=== PATIENT | male | born 1985 | race Hispanic/Latino ===

== ENCOUNTER 2024-10-08 01:50 | Emergency (ER) | payer MEDICAID, OTHER ==
[~2024-10-08] VITALS: Ht 167.6 cm; Wt 68.0 kg
[2024-10-08 01:53] VITALS: TEMP 98.8
[2024-10-08] MEDS: ibuPROFEN 800 MG TAB PO ONE (02:17)
[2024-10-08] MEDS: HYDROcodone/APAP 5/325 1 TAB TABLET PO ONE (02:18)
--- NOTE | 2024-10-08 02:21 | ERN ---
General Chief Complaint: Hand Problem/Injury Stated Complaint: C/O PAIN WITH SWELLING TO RIGHT HAND Time Seen by MD: 01:55 History of Present Illness Initial Comments Otherwise healthy 39-year-old male presents for right head injury. Reports pain to the 4th & 5th metacarpal status post punching a wall. No other injuries. Neurovascularly intact. Allergies: Coded Allergies: No Known Allergies (Unverified Allergy, Unknown, 10/08/24) Past Medical History Past Medical History: Seizure, Other Medical History Other: HX OF EPILEPSY Past Surgical History: None ROS Dictation CONSTITUTIONAL: No chills, no fever, no weakness, no diaphoresis, no malaise. HEAD/FACE: No signs of trauma. EENT: No eye pain, no blurred vision, no tearing, no double vision, no ear pain, no ear discharge, no nose pain, no nasal congestion, no throat pain, no throat swelling, no mouth pain. RESPIRATORY: No cough, no orthopnea, no SOB, no stridor, no wheezing. CARDIOVASCULAR: No chest pain, no edema, no palpitations, no syncope. GASTROINTESTINAL/ABDOMINAL: No abdominal pain, no constipation, no diarrhea, no nausea, no vomiting. GENITOURINARY: No abnormal discharge, no dysuria, no frequent urination, no hematuria. No complaints of pain in the genitals. MUSCULOSKELETAL: Right hand pain INTEGUMENTARY: No change in color, no change in hair/nails, no dryness, no lesion, no lumps, no rash. NEUROLOGICAL/PSYCH: No anxiety, not depressed, no emotional problem, no headache, no numbness, no pre-existing deficit, no history of seizures, no tremors, no weakness. HEMATOLOGIC/LYMPHATIC: Not anemic, no history of blood clots, no apparent bleeding, no bruising, glands not swollen. All Systems Negative, Except as Noted. Physical Exam Physical Exam Dictation VITAL SIGNS: Reviewed. GENERAL APPEARANCE: Alert, oriented x3, no acute distress HEAD AND FACE: Non-traumatic. EYES: PERRL, pink conjunctivas, eyelid no trauma, anterior chamber clear. EARS: Pinnas intact and no signs of trauma or erythema. Ear canals clear and no discharge. TMs no erythema. NOSE: No discharge, no bleeding. OROPHARYNX: Mouth normal, teeth no caries, tongue pink. Pharynx clear, no erythema. Tonsils no exudates, no abscesses noted. Mucous membrane moist. NECK: Supple, non-tender, no thyromegaly, no masses, no JVD, no bruits. BREAST: Deferred. CHEST: No tenderness, no crepitus, no paradoxical movement, no retractions. LUNGS: Clear, well-ventilated, symmetric, no rales, no wheezing, no rhonchi, no stridor, good breath sounds bilaterally. HEART: Regular rate, regular rhythm, no murmur, no gallops. VASCULAR: No peripheral edema. ABDOMEN: Soft, positive bowel sounds, nondistended, no guarding, nontender, no rebound, no masses no hepatomegaly, no splenomegaly, no Kaplan's sign, no hernias. RECTAL: Deferred. GENITAL: Deferred. NEUROLOGICAL: Normal speech, gross motor function intact, gross sensory function intact. MUSCULOSKELETAL: Neck nontender, full range of motion, back nontender, full range of motion. Right hand deformity to the dorsum at the base of the 4th and 5th digits. EXTREMITIES: Nontender, full range of motion. SKIN: Color pink, dry, no turgor, no rash, no lacerations, no abrasions, no contusions. LYMPHATICS: Deferred. MDM CC: Right hand pain status post punching a wall Historian: Patient Comorbidities: None Limitations by social determinants of health: None Differential diagnosis: Fracture versus soft tissue injury Clinically patient likely has boxer's fracture was minimal rotation of the 5th digit. Neurovascularly intact. No other injuries. X-ray per my independent interpretation shows boxer's fracture with some rotation. Placed in a ulnar gutter splint. Neurovascularly intact before and after. We will DC with [place] meloxicam recommend orthopedic follow up. Patient agrees with the plan. ED Course Orders Procedure Category Date Status Time Hand 3+Vws Rt RAD 10/08/24 Taken 01:59 Hydrocodone/Apap PHA 10/08/24 Complete 5/325 ([place] 5/325mg) 02:30 Ibuprofen 800 Mg Tab PHA 10/08/24 Complete (Motrin) 02:30 Current Medications Medications (Trade) Dose Ordered Sig/Moose Route PRN Reason Start Time Stop Time Status Last Admin Dose Admin Acetaminophen/ Hydrocodone Bitart (NORco 5/325MG) 1 tab ONCE ONCE PO 10/08/24 02:30 10/08/24 02:31 DC 10/08/24 02:18 Ibuprofen (moTRIN) 800 mg ONCE ONCE PO 10/08/24 02:30 10/08/24 02:31 DC 10/08/24 02:17 Vital Signs Date Time Temp Pulse Resp B/P (MAP) Pulse Ox O2 Delivery O2 Flow Rate FiO2 10/08/24 02:13 68 16 123/79 100 Room Air* 0 21 10/08/24 01:53 98.8 70 20 132/80 99 Room Air DX & DISP Disposition: Discharge Departure Impression: Primary Impression: Fracture of metacarpal of right hand, closed Condition: Stable Scripts Hydrocodone/Acetaminophen (Hydrocodon-Acetaminophen 5-325) 5 Mg-325 Mg Tablet 1-2 TAB PO TIDP PRN for pain for 5 Days, #15 TAB 0 Refills Prov: CARMEN RIAVS DO 10/08/24 Meloxicam (Meloxicam) 15 Mg Tablet 15 MG PO DAILY PRN for PAIN for 10 Days, #10 TAB Prov: CARMEN RIVAS DO 10/08/24 Additional Instructions: You have a 5th metacarpal fracture, or a boxer's fracture. Wear the splint that you have been provided. You will need to follow up with an orthopedist. As we discussed, you can go to the [facility] from 8-12 a.m. Sunday through Sunday as a drop-in patient. You do not need to make an appointment. I have prescribed meloxicam and [place] tabs to use as needed for pain. Please return to the emergency department as needed. Referrals: SELF,REFERRAL (PCP) LAURYN MATHEW MD, RYAN E DO Oct 08, 2024 02:21
[2024-10-08] MEDS ORDERED: HYDR-4060 PO (02:52)
[2024-10-08] MEDS ORDERED: MELO-108 PO (02:52)
[2024-10-08 03:30] VITALS: BP 111/52; PULSE 65; RESP 18; O2SAT 100
--- NOTE | 2024-10-08 08:39 | HMCIMG ---
RIGHT HAND RADIOGRAPHS - 3 VIEWS INDICATION: Pain COMPARISON: None FINDINGS: AP, lateral, and oblique views. Slightly displaced comminuted fracture through the fifth metacarpal neck and associated mild to moderate volar angulation. No evidence for joint subluxation. Scaphoid bone is intact. Carpal alignment and ulnar variance is within normal limits. No radiopaque foreign body noted. IMPRESSION: Slightly displaced comminuted fracture through the fifth metacarpal neck and associated mild to moderate volar angulation.
== END 2024-10-08 03:50 | disposition home or self-care (01) ==
LOC: EDH 01:50
DX: S62.306A Unspecified fracture of fifth metacarpal bone, right hand, initial encounter for closed fracture (principal); S62.304A Unspecified fracture of fourth metacarpal bone, right hand, initial encounter for closed fracture; G40.909 Epilepsy, unspecified, not intractable, without status epilepticus; W22.8XXA Striking against or struck by other objects, initial encounter; Y93.89 Activity, other specified; Y92.89 Other specified places as the place of occurrence of the external cause; Y99.8 Other external cause status
CPT/HCPCS: 29125; 73130; 99283

== ENCOUNTER 2024-10-15 16:01 | Emergency (ER) | payer MEDICAID ==
[~2024-10-15] VITALS: Ht 167.6 cm; Wt 67.1 kg
[~2024-10-15 16:01] MED LIST: HYDR-4060 PO; MELO-108 PO
[2024-10-15 16:40] VITALS: BP 137/80; PULSE 63; RESP 20; TEMP 98.6; O2SAT 99
[2024-10-15] MEDS: ketOROlac 60 MG VIAL (30MG/ML) IM ONE (16:44)
[2024-10-15] MEDS: HYDROcodone/acetaMINOPHEN 10/325 MG TAB PO ONE (16:44)
--- NOTE | 2024-10-15 17:02 | ERN ---
ED Note History of Present Illness Stated Complaint: PAIN Chief Complaint: Hand Problem/Injury Time Seen by MD: 16:23 Dictation: 39-year-old male presents to the ED for evaluation of right hand pain onset today. Patient reports he was seen at the ED for a right hand injury he had on October 07 and was told he had a fracture. Patient states he ran out of pain meds and wants a refill since he was told today that he needed a referral from his PCP to have the ortho appointment that was scheduled for tomorrow. Patient states he has not appointment with PCP is until November 07. Allergies: Coded Allergies: No Known Allergies (Unverified Allergy, Unknown, 10/08/24) Home Meds Active Scripts Cyclobenzaprine HCl (Flexeril) 10 Mg Tab, 10 MG PO TID for muscle sstiffness, #14 TAB 0 Refills Prov:BRITT SALOMON MD 10/15/24 Naproxen (Naproxen) 250 Mg Tablet, 250 MG PO BID for 5 Days, #10 TAB Prov:BRITT SALOMON MD 10/15/24 Hydrocodone/Acetaminophen (Hydrocodon-Acetaminophen 5-325) 5 Mg-325 Mg Tablet, 1-2 TAB PO TIDP PRN for pain for 5 Days, #15 TAB 0 Refills Prov:CARMEN RIVAS DO 10/08/24 Meloxicam (Meloxicam) 15 Mg Tablet, 15 MG PO DAILY PRN for PAIN for 10 Days, #10 TAB Prov:CARMEN RIVAS DO 10/08/24 Past Medical History Past Medical History: Seizure Additional Past Medical Hx: HX OF EPILEPSY Surgical History: None Review of System Dictation Constitutional: Negative for fever,chills, and weight loss Eyes: Negative for injury, pain,redness, and discharge ENT: Negative for injury,pain or swelling Cardiovascular: Negative for chest pain, palpitations, and edema Respiratory: Negative for shortness of breath, cough, and wheezing, Abdomen/GI: Negative for abdominal pain, nausea, vomiting, diarrhea, and constipation Back: Negative for injury and pain : Negative for injury, bleeding and discharge MS/Extremity: Positive for right hand pain negative for deformity Skin: Negative for rash, and discoloration Neuro: Negative for headache, weakness, numbness, tingling, and seizure Psych: Negative for suicide ideation, homicidal ideation, and hallucinations Initial Vital Sign VS Vital Signs Date Time Temp Pulse Resp B/P (MAP) Pulse Ox O2 Delivery O2 Flow Rate FiO2 10/15/24 16:11 98.6 63 20 137/80 99 Room Air 0 10/15/24 16:40 21 Physical Exam Dictation General: awake, alert, NAD Head/Face: Normocephalic, atraumatic Eyes: PERRL, EOMI, vision at baseline ENT: oral cavity clear, TMs clear, no signs of infection Neck: Trachea midline, supple, no nuchal rigidity Cardiovascular: RRR, normal S1/S2, No MRGs, no JVD Respiratory: CTAB, no respiratory distress, No rales or wheezes Abdomen: Soft, non-tender, non-distended, normal bowel sounds, no guarding or rebound. Skin: Warm, dry, normal turgor, no rash MS/Extremity: Pulses equal, no cyanosis, neurovascular intact, patient has an ulnar gutter splint in place Neuro: COAx4, GCS 15, strength 5/5, CN 2-12 intact, normal cerebellar exam, normal gait, Psych: Normal behavior, mood, and affect normal ED Course ED Course Orders Procedure Category Date Status Time Hydrocodone/Apap PHA 10/15/24 Complete 10/325 Tab ([place] 10) 17:00 Ketorolac 60mg/2ml PHA 10/15/24 Complete (Toradol 60mg/2ml) 17:00 Current Medications Medications (Trade) Dose Ordered Sig/Moose Route PRN Reason Start Time Stop Time Status Last Admin Dose Admin Acetaminophen/ Hydrocodone Bitart (NORco 10) 1 tab ONCE ONCE PO 10/15/24 17:00 10/15/24 17:01 DC 10/15/24 16:44 Ketorolac Tromethamine (toRADol 60MG/ 2ML) 30 mg ONCE ONCE IM 10/15/24 17:00 10/15/24 17:01 DC 10/15/24 16:44 Vital Signs Date Time Temp Pulse Resp B/P (MAP) Pulse Ox O2 Delivery O2 Flow Rate FiO2 10/15/24 16:40 98.6 63 20 137/80 99 Room Air* 0 21 10/15/24 16:11 98.6 63 20 137/80 99 Room Air 0 Medical Decision Making MDM MDM: Differential diagnosis: Right hand pain, fracture of metacarpal right hand Previous outside records reviewed: Old ER visits. Need for hospitalization: Patient does not meet criteria for hospitalization. Need for emergency major/minor surgery: No Patient's prior external medical records from other ER visits were reviewed by me as indicated. Prior testing and results from previous visits were reviewed. Prior tests were taken into account with medical decision making and resource utilization, independent historian/historians were used to obtain complete medical history. I independently interpreted the test that were performed, results were reviewed by me and considered findings on radiology if ordered. Medical management and examination interpretation discussions were had by me wi th other qualified healthcare professionals as indicated for the patient's care. DX & DISP Disposition: Discharge Departure Impression: Primary Impression: Fracture of metacarpal of right hand, closed Condition: Stable Scripts Cyclobenzaprine HCl (Flexeril) 10 Mg Tab 10 MG PO TID for muscle sstiffness, #14 TAB 0 Refills Prov: BRITT SALOMON MD 10/15/24 Naproxen (Naproxen) 250 Mg Tablet 250 MG PO BID for 5 Days, #10 TAB Prov: BRITT SALOMON MD 10/15/24 Referrals: JORGE ESTEBAN MD (PCP) I have reviewed, & agreed with my scribe's, documentation. (Entered by Celeste Crowell, acting as a scribe for Dr. Salomon) I personally scribed for BRITT SALOMON MD ([email or web address]) on 10/15/24 at 17:02. Electronically submitted by Celeste Crowell ([email or web address]). BRITT SALOMON MD Oct 15, 2024 17:02
[2024-10-15] MEDS ORDERED: CYCL10TA16 PO (17:12)
[2024-10-15] MEDS ORDERED: NAPR-1196 PO (17:12)
== END 2024-10-15 17:39 | disposition home or self-care (01) ==
LOC: EDH 16:01
DX: S62.306D Unspecified fracture of fifth metacarpal bone, right hand, subsequent encounter for fracture with routine healing (principal); G40.909 Epilepsy, unspecified, not intractable, without status epilepticus; X58.XXXD Exposure to other specified factors, subsequent encounter
CPT/HCPCS: 99283; 96372; J1885

== ENCOUNTER 2025-01-21 18:43 | Emergency (ER) | payer MEDICAID ==
[~2025-01-21] VITALS: Ht 167.6 cm; Wt 64.9 kg
[~2025-01-21 18:43] MED LIST changes: +CYCL10TA16 PO; +NAPR-1196 PO
[2025-01-21 19:38] LABS: APPEARANCE,URINE CLEAR (CLEAR); BILIRUBIN,URINE NEGATIVE (NEGATIVE); COLOR,URINE LIGHT-YELLOW (YELLOW); GLUCOSE, URINE (UA) NEGATIVE (NEGATIVE); KETONES,URINE NEGATIVE (NEGATIVE); LEUKOCYTE ESTERASE ,URINE NEGATIVE Leu/uL (NEGATIVE); NITRATE,URINE NEGATIVE (NEGATIVE); OCCULT BLOOD,URINE NEGATIVE (NEGATIVE); PH,URINE 5.5 (5.0-8.0); PROTEIN,URINE NEGATIVE (NEGATIVE); UROBILINOGEN,URINE 0.2 mg/dL (0.2-1.0)
[2025-01-21 19:39] LABS: BASOPHILS # (AUTO) 0.01 K/uL (0.00-0.20); BASOPHILS % (AUTO) 0.2 % (0.0-5.0); HEMATOCRIT 43.8 % (42-54); IMMATURE GRANULOCYTE ABSOLUTE 0.01 K/uL (0-1); LYMPHOCYTES # (AUTO) 2.5 K/uL (1.0-4.8); LYMPHOCYTES % (AUTO) 52.7 % (21.0-51.0); MEAN CORPUSCULAR HGB CONC 33.1 g/dL (32.0-36.0); MEAN CORPUSCULAR VOLUME 90.7 fL (79-99); MONOCYTES # (AUTO) 0.5 K/uL (0.1-1.0); MONOCYTES % (AUTO) 9.9 % (3.0-13.0); NEUTROPHILS # (AUTO) 1.7 K/uL (1.8-7.7); PLATELET COUNT (AUTO) 207 K/uL (130-400); RED BLOOD CELL COUNT(AUTO) 4.83 MIL/uL (4.50-6.20); RED CELL DISTRIBUTION WIDTH 12.6 % (11.0-15.5); WHITE BLOOD COUNT (AUTO) 4.7 K/uL (4.8-10.8)
[2025-01-21] MEDS: 0.9%NACL 1000ML 1,000 ML IV ONE (19:44)
[2025-01-21] MEDS: DICYCLOMINE 20MG (10MG/ML) AMP IM ONE (19:44)
[2025-01-21 19:47] LABS: ADD UA MICROSCOPIC NO
[2025-01-21 19:53] LABS: ALBUMIN 4.3 g/dL (3.5-5.0); BILIRUBIN,DIRECT 0.1 mg/dL (0.0-0.3); BILIRUBIN,TOTAL 0.3 mg/dL (0.2-1.0); CREATININE 1.1 mg/dL (0.5-1.3); MAGNESIUM 2.1 mg/dL (1.80-2.40); POTASSIUM 3.9 mmol/L (3.5-5.1); TOTAL PROTEIN, SERUM 7.9 g/dL (6.0-8.3)
--- NOTE | 2025-01-21 20:20 | ERN ---
ED Note History of Present Illness Stated Complaint: DIARRHEA Chief Complaint: Diarrhea Time Seen by MD: 18:48 Time Seen by Midlevel: 18:48 Dictation: The patient is a 39-year-old male with a history of epilepsy who presents to the emergency department with complaints of nonbloody vomiting, generalized abdominal discomfort onset Sunday. Patient denies any nausea or vomiting. Denies any fevers. Allergies: Coded Allergies: No Known Allergies (Unverified Allergy, Unknown, 10/08/24) Home Meds Active Scripts Cyclobenzaprine HCl (Flexeril) 10 Mg Tab, 10 MG PO TID for muscle sstiffness, #14 TAB 0 Refills Prov:BRITT SALOMON MD 10/15/24 Naproxen (Naproxen) 250 Mg Tablet, 250 MG PO BID for 5 Days, #10 TAB Prov:BRITT SALOMON MD 10/15/24 Hydrocodone/Acetaminophen (Hydrocodon-Acetaminophen 5-325) 5 Mg-325 Mg Tablet, 1-2 TAB PO TIDP PRN for pain for 5 Days, #15 TAB 0 Refills Prov:CARMEN RIVAS DO 10/08/24 Meloxicam (Meloxicam) 15 Mg Tablet, 15 MG PO DAILY PRN for PAIN for 10 Days, #10 TAB Prov:CARMEN RIVAS DO 10/08/24 Past Medical History Past Medical History: Seizure Additional Past Medical Hx: HX OF EPILEPSY Surgical History: None RN Note Reviewed/Agreed w/PFSH: Yes Review of System Dictation Constitutional: Negative for fever,chills, and weight loss Eyes: Negative for injury, pain,redness, and discharge ENT: Negative for injury,pain or swelling Cardiovascular: Negative for chest pain, palpitations, and edema Respiratory: Negative for shortness of breath, cough, and wheezing, Abdomen/GI: Negative for nausea, vomiting and constipation positive for abdominal pain, diarrhea Back: Negative for injury and pain : Negative for injury, bleeding and discharge MS/Extremity: Negative for injury and deformity Skin: Negative for rash, and discoloration Neuro: Negative for headache, weakness, numbness, tingling, and seizure Psych: Negative for suicide ideation, homicidal ideation, and hallucinations Initial Vital Sign VS Vital Signs Date Time Temp Pulse Resp B/P (MAP) Pulse Ox O2 Delivery O2 Flow Rate FiO2 4/16/25 18:45 97.9 61 20 119/82 99 Room Air 01/21/25 19:00 0 21 Physical Exam Dictation Vital Signs reviewed General Appearance: Alert, oriented x 3, no acute distress, well developed, nourished. Head and Face: non-traumatic. Eyes: PERRL, pink conjunctivas, eyelid no trauma, anterior chamber with arcus senilis. Ears: Pinnas intact and no signs of trauma or erythema ear canals clear and no discharge TM no erythema Nose: No discharge, no bleeding. Oropharynx: Mouth normal, tongue pink. pharynx clear,no erythema, tonsils no exudates, no abscesses noted, mucous membrane moist Neck: Supple, non-tender, no thyromegaly, no masses, no JVD, no bruits Breast:Deferred Chest:No tenderness, no crepitus, no paradoxical movement, no retractions Lungs:Clear, well-ventilated, symmetric, no rales, no wheezing, no rhonchi, no stridor, good breath sounds bilaterally Heart: Regular rate, regular rhythm, no murmur, no gallops Vascular: no peripheral edema, Abdomen: Soft, positive bowel sounds, nondistended, no guarding, nontender, no rebound, no masses no hepatomegaly, no splenomegaly, no Kaplan's sign, no hernias. Rectal: Deferred Genital: Deferred Neurological: Normal speech, motor function intact, sensory function intact Musculoskeletal: Neck nontender, full range of motion, back nontender, full range of motion, Extremities: nontender, full range of motion Skin: Color pink, dry, no turgor, no rash, no lacerations, no abrasions, no contusions. Lymphatic: Deferred Results (Laboratory/Radiology) Laboratory/Radiology Laboratory Tests Test 01/21/25 19:10 01/21/25 19:25 Urine Color LIGHT-YELLOW (YELLOW) Urine Appearance CLEAR (CLEAR) Urine pH 5.5 (5.0-8.0) Urine Specific [place] 1.016 (1.001-1.031) Urine Protein NEGATIVE mg/dL (NEGATIVE) Urine Glucose (UA) NEGATIVE mg/dL (NEGATIVE) Urine Ketones NEGATIVE mg/dL (NEGATIVE) Urine Occult Blood NEGATIVE (NEGATIVE) Urine Nitrate NEGATIVE (NEGATIVE) Urine Bilirubin NEGATIVE mg/dL (NEGATIVE) Urine Urobilinogen 0.2 mg/dL (0.2-1.0) Urine Leukocyte Esterase NEGATIVE Ander/uL White Blood Count 4.7 K/uL (4.8-10.8) L Red Blood Count 4.83 MIL/uL (4.50-6.20) Hemoglobin 14.5 g/dL (14.0-18.0) Hematocrit 43.8 % (42-54) Mean Corpuscular Volume 90.7 fL (79-99) Mean Corpuscular Hemoglobin 30.0 pg (27.0-33.0) Mean Corpuscular Hemoglobin Concent 33.1 g/dL (32.0-36.0) Red Cell Distribution Width 12.6 % (11.0-15.5) Platelet Count 207 K/uL (130-400) Mean Platelet Volume 10.3 fL (7.5-10.5) Immature Granulocyte % (Auto) 0.2 % (0-1) Neutrophils (%) (Auto) 37.0 % (40.0-77.0) L Lymphocytes (%) (Auto) 52.7 % (21.0-51.0) H Monocytes (%) (Auto) 9.9 % (3.0-13.0) Eosinophils (%) (Auto) 0.0 % (0.0-8.0) Basophils (%) (Auto) 0.2 % (0.0-5.0) Neutrophils # (Auto) 1.7 K/uL (1.8-7.7) L Lymphocytes # (Auto) 2.5 K/uL (1.0-4.8) Monocytes # (Auto) 0.5 K/uL (0.1-1.0) Eosinophils # (Auto) 0.00 K/uL (0.00-0.70) Basophils # (Auto) 0.01 K/uL (0.00-0.20) Absolute Immature Granulocyte (auto 0.01 K/uL (0-1) Nucleated Red Blood Cells 0.0 % (0.0-0.19) Sodium Level 144 mmol/L (136-145) Potassium Level 3.9 mmol/L (3.5-5.1) Chloride Level 105 mmol/L (101-111) Carbon Dioxide Level 30 mmol/L (21-32) Blood Urea Nitrogen 11 mg/dL (7-18) Creatinine 1.1 mg/dL (0.5-1.3) Glomerular Filtration Rate Calc 87 mL/min (>90) Random Glucose 97 mg/dL (70-105) Total Calcium 9.1 mg/dL (8.5-10.1) Magnesium Level 2.10 mg/dL (1.80-2.40) Total Bilirubin 0.3 mg/dL (0.2-1.0) Direct Bilirubin 0.1 mg/dL (0.0-0.3) Aspartate Amino Transf (AST/SGOT) 32 U/L (10-37) Alanine Aminotransferase (ALT/SGPT) 34 U/L (12-78) Alkaline Phosphatase 121 U/L (50-136) Total Creatine Kinase 238 U/L (21-232) H Total Protein 7.9 g/dL (6.0-8.3) Albumin 4.3 g/dL (3.5-5.0) Lipase 43 U/L (16-77) Labs Reviewed?: Yes ED Course ED Course Orders Procedure Category Date Status Time Cbc With Differential LAB 01/21/25 Complete 19:01 Urinalysis Profile LAB 01/21/25 Complete 19:01 0.9%Nacl 1000ml (Ns PHA 01/21/25 Complete 1000ml) 19:30 Dicyclomine Hcl PHA 01/21/25 Complete (Bentyl 20mg Inj) 19:30 Creatine Kinase, Total LAB 01/21/25 Complete 19:01 Lipase LAB 01/21/25 Complete 19:01 Basic Metabolic Panel LAB 01/21/25 Complete 19:01 Hepatic Function Panel LAB 01/21/25 Complete 19:01 Magnesium LAB 01/21/25 Complete 19:01 Current Medications Medications (Trade) Dose Ordered Sig/Moose Route PRN Reason Start Time Stop Time Status Last Admin Dose Admin Dicyclomine HCl (Bentyl 20mg Inj) 20 mg ONCE ONCE IM 01/21/25 19:30 01/21/25 19:31 DC 01/21/25 19:44 Sodium Chloride 1,000 ml @ 0 mls/hr ONCE ONCE IV 01/21/25 19:30 01/21/25 19:31 DC 01/21/25 19:44 Vital Signs Date Time Temp Pulse Resp B/P (MAP) Pulse Ox O2 Delivery O2 Flow Rate FiO2 01/21/25 19:00 97.9 61 20 119/82 99 Room Air* 0 21 01/21/25 18:45 97.9 61 20 119/82 99 Room Air Medical Decision Making MDM The patient is a 39-year-old male with a history of epilepsy who presents to the emergency department with complaints of nonbloody vomiting, generalized abdominal discomfort onset Sunday. Patient denies any nausea or vomiting. Denies any fevers. CBC showed no leukocytosis, no anemia, chemistry showed no electrolyte imbalance, normal renal function, urinalysis unremarkable. Patient with a nontender abdomen. Nontoxic appearance, stable vital signs. Symptoms probably related to gastroenteritis. Patient will be discharged to follow up with PCP. Differential diagnosis: Gastroenteritis, dehydration, electrolyte imbalance Need for hospitalization: Patient does not meet criteria for hospitalization. There are no social concerns with this patient. DX & DISP Disposition: Discharge Departure Impression: Primary Impression: Viral gastroenteritis Additional Impression: Diarrhea Condition: Stable Additional Instructions: Please follow up with your primary doctor in 1-2 days. Continue oral hydration at home as tolerated. Previous return to ER if symptoms worsen please FOLLOW-UP WITH PRIMARY CARE PROVIDER IN 1 TO 2 DAYS. TAKE MEDICATIONS DIRECTED HERE IN THE EMERGENCY ROOM. OKAY TO CONTINUE HOME MEDICATIONS UNLESS OTHERWISE DISCUSSED DURING YOUR VISIT IN THE EMERGENCY ROOM TODAY. RETURN TO YOUR NEAREST EMERGENCY ROOM IF SYMPTOMS WORSEN OR IF THERE IS NO IMPROVEMENT. CALL 911 IF YOU NEED IMMEDIATE ASSISTANCE. TAKE TYLENOL OR MOTRIN [id number] NEEDED AND IF NO CONTRAINDICATIONS ARE PRESENT. INCREASE ORAL HYDRATION. A WOUND CULTURE OR URINE CULTURE WAS ORDERED HERE IN THE EMERGENCY ROOM DEPARTMENT PLEASE FOLLOW-UP WITH PRIMARY CARE PROVIDER AND ADVISE THEM TO GET REPEAT PORTS FROM OUR FACILITY. IF YOU HAD ANY PORFIRIO WRAP/SPLINTS THAT WERE APPLIED HERE, PLEASE DO NOT REMOVE THEM UNTIL YOU SEE YOUR PRIMARY CARE OR SPECIALTY. Referrals: JORGE ESTEBAN MD (PCP) Time of Disposition: 20:20 I have reviewed the case, and I agree with, Diagnosis and Plan [facility] Jan 21, 2025 20:20
[2025-01-21 20:25] VITALS: BP 124/74; PULSE 68; RESP 20; TEMP 97.9; O2SAT 99
== END 2025-01-21 20:26 | disposition home or self-care (01) ==
LOC: EDH 18:43
DX: A08.4 Viral intestinal infection, unspecified (principal); R19.7 Diarrhea, unspecified; G40.909 Epilepsy, unspecified, not intractable, without status epilepticus
CPT/HCPCS: 99283; 82550; 80076; 83735; 80048; 83690; 85025; 81003; 36415; 96372; J0500